=== PATIENT | female | born 1970 | race Two or more races ===

== ENCOUNTER → 2016-07-29 | Outpatient (CLI) | payer OTHER | LOC: WI 07-24 15:28 | PROVIDERS: ATTEND Nurse Practitioner | DX: N63 Unspecified lump in breast (principal); Z12.31 Encounter for screening mammogram for malignant neoplasm of breast | CPT/HCPCS: 76642; G0279; G0204; 77062; 77066 ==

== ENCOUNTER 2017-05-13 08:10 | Day surgery (SDC) | payer OTHER ==
[2017-05-04 10:48] LABS: AMORPHOUS SEDIMENT,URINE TRACE /HPF; APPEARANCE,URINE SLIGHTLY-CLOUDY; BILIRUBIN,URINE NEGATIVE (NEGATIVE); COLOR,URINE YELLOW; GLUCOSE, URINE NEGATIVE (NEGATIVE); KETONES,URINE NEGATIVE (NEGATIVE); LEUKOCYTE ESTERASE,URINE NEGATIVE (NEGATIVE); NITRITE,URINE NEGATIVE (NEGATIVE); PROTEIN,URINE NEGATIVE (NEGATIVE); URINE SPECIFIC GRAVITY 1.012; UROBILINOGEN,URINE NEGATIVE mg/dL (<2.0)
--- NOTE | 2017-05-04 11:17 | RADIOLOGY REPORT (SQ) ---
EXAM DESCRIPTION: CHEST PA/LATERAL COMPLETED DATE/TIME: 05/04/2017 10:56 am REASON FOR STUDY: PRE-OP COMPARISON: None. TECHNIQUE: Frontal and lateral radiographic views of the chest acquired. NUMBER OF VIEWS: Two view. LIMITATIONS: None. FINDINGS: LUNGS AND PLEURA: No opacities, masses or pneumothorax. No pleural effusion. MEDIASTINUM AND HILAR STRUCTURES: No masses or contour abnormalities. HEART AND VASCULAR STRUCTURES: Heart normal size. No evidence for failure. BONES: No acute findings. HARDWARE: None in the chest. OTHER: No other significant finding. IMPRESSION: NO SIGNIFICANT RADIOGRAPHIC FINDING IN THE CHEST. TECHNICAL DOCUMENTATION: JOB ID: [id number] [employer]- All Rights Reserved
[2017-05-04 11:27] LABS: HEMATOCRIT 42.4 % (36.0-47.0); HEMOGLOBIN 13.9 g/dL (12.0-15.5); MEAN CORPUSCULAR HEMOGLOBIN 27.5 pg (27.0-33.4); MEAN CORPUSCULAR HGB CONC 32.8 g/dL (32.0-36.0); MEAN CORPUSCULAR VOLUME 84 fl (80-97); PLATELET COUNT 321 10^3/uL (150-450); RED BLOOD COUNT 5.06 10^6/uL (3.72-5.28); RED CELL DISTRIBUTION WIDTH 12.8 % (11.5-14.0); WHITE BLOOD COUNT 5.8 10^3/uL (4.0-10.5)
[2017-05-04 11:58] LABS: ALANINE AMINOTRANSFERASE 70 U/L (9-52); ALBUMIN 4.7 g/dL (3.5-5.0); ALKALINE PHOSPHATASE 90 U/L (38-126); ANION GAP 9 (5-19); ASPARTATE AMINO TRANSFERASE 48 U/L (14-36); BILIRUBIN,DIRECT 0.1 mg/dL (0.0-0.4); BILIRUBIN,TOTAL 0.5 mg/dL (0.2-1.3); BLOOD UREA NITROGEN 11 mg/dL (7-20); CALCIUM 10.6 mg/dL (8.4-10.2); CARBON DIOXIDE 29 mmol/L (22-30); CHLORIDE 105 mmol/L (98-107); GLUCOSE 77 mg/dL (75-110); POTASSIUM 4.6 mmol/L (3.6-5.0); SODIUM 143.1 mmol/L (137-145); TOTAL PROTEIN 7.2 g/dL (6.3-8.2)
--- NOTE | 2017-05-04 22:35 | EKG REPORT ---
SEVERITY:- NORMAL ECG - SINUS RHYTHM : Confirmed by: Nicki Urbina 04-May-2017 22:35:03
[~2017-05-13 08:10] MED LIST: CEFAZOLIN 1 GM/D5W RTU 1 GM/50 ML RTUPB IV PRN; LACTATED RINGERS 1000 ML IV PRN; LIDOCAINE 0.5% INJ-PF (5 MG/ML) 50 ML SDV SUBCUT PRN; MAGNESIUM CITRATE 296 ML BOTTLE PO ONE
[2017-05-13] MEDS ORDERED: CEFAZOLIN 1 GM/D5W RTU 1 GM/50 ML RTUPB IV ONE (08:21)
[2017-05-13] MEDS ORDERED: PROMETHAZINE HCL INJ 25 MG/1 ML VIAL IV PRN ×3 (10:01→16:16)
[2017-05-13] MEDS ORDERED: DIPHENHYDRAMINE HCL 50 MG/ML VIAL IV PRN ×2 (10:01→13:52)
[2017-05-13] MEDS ORDERED: MEPERIDINE HCL/PF INJ 25 MG/1 ML DISP.SYRIN IV PRN ×2 (10:01→13:52)
[2017-05-13] MEDS ORDERED: MORPHINE SULFATE 10 MG/ML INJ IV PRN ×2 (10:01→13:52)
[2017-05-13] MEDS ORDERED: FENTANYL CITRATE INJ/PF 100 MCG/2 ML AMPUL IV PRN ×6 (10:01→13:52)
[2017-05-13] MEDS ORDERED: HYDROMORPHONE HCL INJ/PF 2 MG/ML AMPULE ONE (10:31)
[2017-05-13] MEDS ORDERED: ACETAMINOPHEN 100 ML IV ONE ×2 (10:31→18:30)
[2017-05-13] MEDS ORDERED: MIDAZOLAM 2 MG/2 ML INJ ONE (10:31)
[2017-05-13] MEDS ORDERED: PROPOFOL INJ 200 MG/20 ML VIAL IV ONE (10:31)
[2017-05-13] MEDS ORDERED: FENTANYL CITRATE INJ/PF 100 MCG/2 ML AMPUL ONE (10:31)
[2017-05-13] MEDS ORDERED: LIDOCAINE 2% INJ-PF (20 MG/ML) 2 ML AMPUL ONE (11:09)
[2017-05-13] MEDS ORDERED: VECURONIUM BROMIDE INJ 10 MG VIAL IV ONE (11:09)
[2017-05-13] MEDS ORDERED: KETOROLAC TROMETHAMINE 60 MG/2 ML SDV ONE (11:09)
[2017-05-13] MEDS ORDERED: GLYCOPYRROLATE INJ 0.4 MG/2 ML VIAL ONE (11:09)
[2017-05-13] MEDS ORDERED: ONDANSETRON HCL INJ/PF 4 MG/2 ML SDV ONE (11:09)
[2017-05-13] MEDS ORDERED: DEXAMETHASONE SOD PHOSPHATE INJ 4 MG/1 ML VIAL ONE (11:09)
[2017-05-13] MEDS: FENTANYL CITRATE INJ/PF 100 MCG/2 ML AMPUL ONE ×4 (13:32→14:05)
[2017-05-13] MEDS ORDERED: IBUPROFEN 800 MG TABLET PO PRN (14:02)
[2017-05-13] MEDS ORDERED: RINGERS SOLUTION,LACTATED 1,000 ML IV PRN (14:02)
[2017-05-13] MEDS ORDERED: OXYCODONE-ACETAMINOPHEN 5-325 MG TABLET PO PRN (14:03)
--- NOTE | 2017-05-13 15:29 | OPERATIVE REPORT E ---
Operative Report NAME: KHRIS PACHECO : 1970 AGE: 46Y DATE OF SURGERY: 05/13/2017 ROOM: 216 PREOPERATIVE DIAGNOSES: 1. Abnormal uterine bleeding. 2. Chronic pelvic pain. 3. Suspicion of pelvic adhesive disease. POSTOPERATIVE DIAGNOSES: 1. Abnormal uterine bleeding. 2. Chronic pelvic pain. SURGEON: MAYNOR REIS M.D. SUPERVISOR INTELLIGENCE ANALYST: Casi Byrd, Well Control Instructor Referral Nurse ANESTHESIA: Dr. Salomon with general. FINDINGS: A 12-week uterus. There was no endometriosis and there were no adhesions of the pelvis. There was evidence of a Falope ring tubal ligation. COMPLICATIONS: None. ESTIMATED BLOOD LOSS: 100 mL. SPECIMENS REMOVED: Uterus, cervix, and bilateral fallopian tubes. PROCEDURE: Robotic-assisted total laparoscopic hysterectomy with bilateral salpingectomy. PROCEDURE IN DETAIL: The patient was taken to the operating room and prepared and draped in a normal sterile fashion in the dorsal lithotomy position. Under sterile conditions, a Lam was placed to gravity. A sterile speculum was placed in the vagina and the cervix was prepped with Betadine. The cervix was grasped on the anterior lip with a single-toothed tenaculum and dilated to accommodate a medium Vcare uterine manipulator, which was placed without difficulty. The speculum was then removed and attention was turned to the upper portion of the case. A skin incision was made approximately 2 cm above the umbilicus with a scalpel and this was carried through to the underlying layer of fascia with hemostat. The fascia was then grasped with 2 Edyta's and the peritoneum and fascia were transected using Mathew's. The fascial incision was then extended with the Mathew's to accommodate 2 fingerbreadths. The GelPort was then placed and the uterine morcellation bag was placed into the right pericolic gutter. The abdomen was then inflated with approximately 2 L of CO2 gas through the AirSeal. The laparoscopic camera was then introduced, and under direct visualization, 2 ports were placed approximately 10 cm on either side of the umbilicus without difficulty. The robot was then docked and the instruments were placed accordingly. I then descrubbed and sat at the console where beginning with the right fallopian tube this was transected using the monopolar scissors and transecting at the fundus using the vessel sealer. This was removed by my assistant professor of mathematics through the port and the left fallopian tube was removed in a similar fashion. The utero-ovarian ligament was then transected on the left and the uterine artery was skeletonized and transected using the vessel sealer to the level of the internal cervical os. The bladder flap was then started using the monopolar scissors and the bladder was dissected well away. This procedure was repeated on the right adnexa without difficulty and the right uterine artery was also skeletonized and transected using the vessel sealer in a similar fashion. Careful inspection of the peritoneal cavity throughout the beginning of the case revealed no pelvic adhesions and there was no evidence of any endometriosis present in either the anterior or posterior cul-de-sac. At this time, the uterus was elevated and the uterosacral ligaments were carefully inspected for endometriosis and there was evidence of none. I continued skeletonization and transection of the right uterine artery at this point until I reached the level of the internal cervical os and I could palpate the Vcare cup through the mucosa. The bladder flap was completed with the monopolar scissors and blunt dissection. I then began the colporrhaphy using the monopolar scissors in a circumferential fashion following the Vcare until the specimen was freed. The specimen was then placed into the posterior cul-de-sac. The instruments were replaced with a [employer] Needle Systems Support Specialist and a Prograf and the V-Loc needle was introduced by my assistant professor of mathematics and I then closed the cuff using the V-Loc without difficulty. The needle was then removed again by my assistant professor of mathematics and the morcellation bag was then opened and the specimen was placed into the morcellation bag with a little bit of difficulty as the bag had turned upside down, and so we kind of inverted the bag with placement of the specimen in the middle. We then held the bag at the skin opening with an atraumatic grasper and I rescrubbed and began the last portion of the case where the Gelpoint was then removed and the bag was brought to the umbilical skin incision. Unfortunately, at this point, we realized that the specimen had fallen out of the bag at that juncture. Therefore, the specimen was located once more with the assistance of the laparoscope and the specimen was brought to the umbilical skin incision. The specimen was then carefully morcellated exteriorly as it was brought through the incision and it was carefully morcellated using a sawtooth technique and an 11-blade. Once this was completed and the specimen was completely freed through the umbilical skin incision, we reinspected, the peritoneal cavity and found it to be free of injury. The fascia was then closed with 0 Vicryl at the Gelpoint incision. The skin was closed at all 3 incisions with 4-0 Vicryl. Patient tolerated procedure well. Sponge, lap, and needle counts were correct x2 and the patient was taken to recovery in stable condition. DICTATING PHYSICIAN: MAYNOR REIS M.D. [id number] PHY#: [id number] ID: [id number] JOB#: [id number] ACCT: [id number] cc:MAYNOR REIS M.D. >
[2017-05-13] MEDS: KETOROLAC TROMETHAMINE INJ/PF 30 MG/1 ML SDV IV SCH (18:15)
[2017-05-14] MEDS: KETOROLAC TROMETHAMINE INJ/PF 30 MG/1 ML SDV IV SCH ×2 (01:20→09:40)
[2017-05-14 07:21] LABS: HEMOGLOBIN 12.4 g/dL (12.0-15.5); MEAN CORPUSCULAR HEMOGLOBIN 26.9 pg (27.0-33.4); MEAN CORPUSCULAR HGB CONC 32.5 g/dL (32.0-36.0); MEAN CORPUSCULAR VOLUME 83 fl (80-97); PLATELET COUNT 274 10^3/uL (150-450); RED BLOOD COUNT 4.59 10^6/uL (3.72-5.28); WHITE BLOOD COUNT 16.9 10^3/uL (4.0-10.5)
[2017-05-14] MEDS ORDERED: AMPICILLIN SODIUM/SULBACTAM NA 3 GM in NORMAL SALINE 100 ML IV ONE (09:30)
--- NOTE | 2017-05-14 12:16 | PDOC DISCHARGE SUMMARY ---
General - Admit/Disc Date/PCP Admission Date/Primary Care Provider: VARSHA VINES Discharge Date: 05/14/17 - Discharge Diagnosis (1) Abnormal uterine bleeding (AUB) Is this a current diagnosis for this admission?: Yes (2) Chronic pelvic pain in female Is this a current diagnosis for this admission?: Yes - Additional Information Home Medications: Butalb/Acetaminophen/Caffeine [Fioricet (50-325-40 mg) Tablet] 1 tab PO Q4HP PRN 04/30/17 Celecoxib [Celebrex] 200 mg PO DAILY PRN 04/30/17 Cyanocobalamin (Vitamin B-12) [Vitamin B12] 2,500 mcg PO DAILY PRN 04/30/17 Multivitamin [Multiple Vitamins] 1 each PO DAILY PRN 04/30/17 History of Present Illness History of Present Illness: KHRIS PACHECO is a 46 year old female Hospital Course Hospital Course: underwent an RATLH w/ b/l salpingectomy. Normal post op course Physical Exam - Physical Exam Vital Signs: Temp Pulse Resp BP Pulse Ox 98.3 F 73 14 118/67 99 05/14/17 08:38 05/14/17 08:38 05/14/17 08:38 05/14/17 08:38 05/14/17 09:11 Intake & Output 05/13/17 05/14/17 05/15/17 06:59 06:59 06:59 Intake Total 4500 Output Total 1925 400 Balance 2575 -400 Weight 54.43 kg General appearance: PRESENT: no acute distress, cooperative GI/Abdominal exam: PRESENT: normal bowel sounds, tenderness - appropriate for post op period. incisions c/d/intact Result Laboratory Results: 05/14/17 06:35 05/04/17 10:32 05/14/17 06:35 WBC 16.9 H RBC 4.59 Hgb 12.4 Hct 38.0 MCV 83 MCH 26.9 L MCHC 32.5 RDW 13.0 Plt Count 274 Impressions: Chest X-Ray 05/04/17 10:41 IMPRESSION: NO SIGNIFICANT RADIOGRAPHIC FINDING IN THE CHEST. Plan Discharge Plan: discharge home with scheduled follow up at [facility] Time Spent: Less than 30 Minutes
[2017-05-14 13:24] VITALS: BP 133/84
[2017-05-14] MEDS ORDERED: AMPICILLIN SODIUM/SULBACTAM NA 3 GM in NORMAL SALINE 100 ML IV SCH (15:00)
== END 2017-05-14 13:40 | disposition home or self-care (01) ==
LOC: OROUT 08:10 → 2S 14:57 → OROUT 05-14 13:40
PROVIDERS: ATTEND Obstetrics & Gynecology
PROC: 0UB74ZZ Excision of Bilateral Fallopian Tubes, Percutaneous Endoscopic Approach (ICD-10-PCS; 2017-05-13)
PROC: 8E0W4CZ Robotic Assisted Procedure of Trunk Region, Percutaneous Endoscopic Approach (ICD-10-PCS; 2017-05-13)
PROC: 0UT94ZZ Resection of Uterus, Percutaneous Endoscopic Approach (ICD-10-PCS; principal; 2017-05-13 10:15)
DX: D25.1 Intramural leiomyoma of uterus (principal); N93.9 Abnormal uterine and vaginal bleeding, unspecified; N92.0 Excessive and frequent menstruation with regular cycle; N83.8 Other noninflammatory disorders of ovary, fallopian tube and broad ligament
CPT/HCPCS: 58571; S2900; 36415; 71046; 80053; 81001; 81025; 840; 85027; 86850; 86900; 86901; 88307; 93005; 93010; A6240; J0131; J0295; J0690; J1100; J1170; J1885; J2250; J2405; J2550; J2704; J3010; J3490; J7120